=== PATIENT | female | born 1960 | race Asian ===

== ENCOUNTER 2023-02-05 20:15 | Emergency (ER) | payer BC, OTHER, SELFPAY ==
[2023-02-05 20:28] VITALS: BP 169/79; PULSE 110; RESP 16; TEMP 36.9; O2SAT 100; BMI 28.9
[2023-02-05 20:50] VITALS: BP 164/78; PULSE 102; RESP 16; O2SAT 100
--- NOTE | 2023-02-05 21:00 | PC.NURSE ---
patient took her home blood pressure medications. provider aware. losartan pot 50mg.
[2023-02-05 22:14] VITALS: BP 165/80; PULSE 91; RESP 16; O2SAT 98
--- NOTE | 2023-02-05 22:17 | PC.NURSE ---
patient is here complaining of high blood pressure. she reports that she was started on medications last week. she took her blood pressure at home before she took her blood pressure medications. she denies any chest pain or shortness of breath.
[2023-02-05 22:18] VITALS: PULSE 90
--- NOTE | 2023-02-05 23:10 | ED.GENADULT ---
HPI - General Adult General Chief complaint: Hypertension Stated complaint: states super high BP Time Seen by Provider: 02/05/23 22:23 Source: patient Mode of arrival: Ambulatory History of Present Illness HPI narrative: 62-year-old female nonsmoker with blood pressure is high as the 160s and 170s at home presents with family friend. She was recently diagnosed with hypertension and started on losartan 50 mg. She is not yet had her medications tonight. She denies any symptoms whatsoever but states she is here because she is concerned about her high blood pressure. She denies any headache or blurred vision. She denies any numbness, tingling or weakness. She has no chest pain, pressure or heaviness and denies any shortness of breath. She denies any abdominal pain, nausea or vomiting. Soon after triage she was encouraged to take her losartan Review of Systems Review of Systems Narrative: GENERAL: Denies chills, fatigue, malaise, fever, sweats. HEENT: Denies sinus pain, ear pain, sore throat, difficulty swallowing, dizziness. RESPIRATORY: Denies dyspnea, cough, wheezing, hemoptysis, sputum. CARDIOVASCULAR: Denies chest pain, palpitations, orthopnea, edema, GASTROINTESTINAL: Denies nausea, vomiting, abdominal pain, diarrhea, constipation, melena. : Denies dysuria, frequency, incontinence, hematuria, urinary retention. MUSCULOSKELETAL: denies weakness, joint pain, or bony pain SKIN: Denies rash, skin lesions, or other NEUROLOGIC: Denies weakness, headache, numbness, change in speech, confusion, seizures, incoordination. PSYCHIATRIC: No concerning psychosocial issues. 12 point review of systems is negative except for those stated above Patient History Social History Smoking Status: Never smoker Smoking Status: Never smoker Substance Use Type: does not use Exam Narrative Exam Narrative: GENERAL: [62] year old patient appears stated age. Well-developed patient, in mild distress. HEAD: Atraumatic. Normocephalic. EYES: Pupils equal round and reactive. Extraocular motions intact. No scleral icterus. No injection or drainage. ENT: Nose without bleeding, purulent drainage. Throat without erythema, tonsillar hypertrophy or exudate. Airway patent. NECK: Trachea midline. Non tender CARDIOVASCULAR: Regular rate and rhythm without murmurs, gallops, or rubs. RESPIRATORY: Clear to auscultation. Breath sounds equal bilaterally. No wheezes, rales, or rhonchi. GASTROINTESTINAL: Abdomen soft, non-tender, nondistended. EXTREMITIES: No edema or joint tenderness. BACK: Nontender without deformity or crepitance. No flank tenderness. NEURO: AOx3. SKIN: No rash or erythema of visible areas Initial Vital Signs Initial Vital Signs: Vital Signs Temperature 98.5 F 02/05/23 20:28 Pulse Rate 110 H 02/05/23 20:28 Respiratory Rate 16 02/05/23 20:28 Blood Pressure 169/79 H 02/05/23 20:28 Pulse Oximetry 100 02/05/23 20:28 Oxygen Delivery Method Room Air 02/05/23 20:28 Course Vital Signs Vital signs: Vital Signs - 8 hr 02/05/23 20:28 02/05/23 20:50 02/05/23 22:14 Temperature 98.5 F Pulse Rate 110 H 102 H 91 H Respiratory Rate 16 16 16 Blood Pressure 169/79 H 164/78 H 165/80 H Pulse Oximetry 100 100 98 Oxygen Delivery Method Room Air Room Air Room Air 02/05/23 22:18 Temperature Pulse Rate 90 Respiratory Rate Blood Pressure Pulse Oximetry Oxygen Delivery Method Medical Decision Making [facility] Narrative Medical decision making narrative: [62] year old patient presents with asymptomatic hypertension Multiple etiologies for patient's symptoms considered including, but not limited to: [Hypertension versus other] No prior charts available Primary Historian: patient Patient asymptomatic for duration of visit, had not taken her antihypertensives. Blood pressure in the 160s over the course of the visit. I would extensive discussion with patient and family and we engaged in shared decision-making. Given her lack of symptoms and moderately elevated blood pressure we discussed a large workup including labs, imaging and others versus reassurance and discharge with close follow-up. In the end we all sure the opinion that she is appropriate for discharge with a workup is not indicated given her lack of symptoms. She is given return precautions which include but are not limited to headache, blurred vision, trouble with speech, chest pain, shortness of breath, abdominal pain, extremity troubles or other bothersome symptoms Findings and discharge diagnosis discussed with patient/family followed by verbalization of understanding Return precautions discussed with patient/family whom verbalize understanding of diagnosis and plan Discharge Plan Departure Patient Disposition: Home Clinical Impression: Hypertension Instructions: DI for High Blood Pressure Activity Restrictions/Additional Instructions: *You have been diagnosed with [asymptomatic hypertension] *What to do: *Please continue to take your regular medications as directed. *Please follow up with your primary care provider in 2-3 days, call for an appointment. Let them know you were seen in the Emergency Department and that we ask that you be seen in follow up. We will electronically transmit a record of today's note if your PCP is in our system *If you do not have a primary care provider please contact the [facility] Resource line at [phone]. They will ask some questions about your medical history and help get you set up with a doctor in the community. *Return to Emergency Department if you should have any new, worsening or concerning symptoms, such as [fever greater than 101 F, shaking chills, worsening pain, persistent vomiting or other bothersome symptoms] Referrals: Anju Mcguire ARNP [Primary Care Provider] - Stand Alone Forms: Patient Portal/API
== END 2023-02-05 22:27 | disposition home or self-care (01) ==
PROVIDERS: Emergency Provider Emergency Medicine; PCP Nurse Practitioner Family
DX: I10 Essential (primary) hypertension (principal)
CPT/HCPCS: 99281